=== PATIENT | male | born 1980 | race Caucasian/White ===

== ENCOUNTER 2017-01-19 22:08 | Emergency (ER) | payer BC ==
[~2017-01-19] VITALS: Ht 180.3 cm; Wt 74.8 kg
[~2017-01-19 22:08] MED LIST: ADVIL200 M1 PO; MULTIPLE VITAM1 EAC1 PO; SULFACETAMIDE S15 ML OS; TYLENOL WITH C1 EACH PO; VICODIN 5-3001 EACH PO
== END 2017-01-19 23:02 | disposition home or self-care (01) ==
LOC: ED 22:08
DX: S20.212A Contusion of left front wall of thorax, initial encounter (principal); F17.200 Nicotine dependence, unspecified, uncomplicated; W50.1XXA Accidental kick by another person, initial encounter; Y93.75 Activity, martial arts
CPT/HCPCS: 71101; 99283

== ENCOUNTER 2017-03-28 12:18 | Emergency (ER) | payer BC ==
[~2017-03-28] VITALS: Ht 180.3 cm; Wt 77.1 kg
[2017-03-28] MEDS ORDERED: IBUPROFEN600 MG PO (15:02)
== END 2017-03-28 15:26 | disposition home or self-care (01) ==
LOC: ED 12:18
DX: I80.02 Phlebitis and thrombophlebitis of superficial vessels of left lower extremity (principal); F17.200 Nicotine dependence, unspecified, uncomplicated
CPT/HCPCS: 93971; 99284

== ENCOUNTER 2017-05-15 17:03 | Emergency (ER) | payer BC ==
[~2017-05-15] VITALS: Ht 180.3 cm; Wt 77.1 kg
[~2017-05-15 17:03] MED LIST changes: +IBUPROFEN600 MG PO
[2017-05-15] MEDS ORDERED: POLYMYXIN B-TMP10 ML OPTH (17:11)
[2017-05-15] MEDS ORDERED: ERYTHROMYCIN1 GM OP (19:05)
== END 2017-05-15 17:17 | disposition home or self-care (01) ==
LOC: ED 17:03
DX: H57.12 Ocular pain, left eye (principal)

== ENCOUNTER 2017-05-15 17:21 | Emergency (ER) | payer OTHER ==
[~2017-05-15] VITALS: Ht 180.3 cm; Wt 77.1 kg
[~2017-05-15 17:21] MED LIST changes: +POLYMYXIN B-TMP10 ML OPTH
[2017-05-15] MEDS ORDERED: ERYTHROMYCIN1 GM OP (19:05)
== END 2017-05-15 19:30 | disposition home or self-care (01) ==
LOC: ED 17:21
DX: H10.9 Unspecified conjunctivitis (principal); F17.200 Nicotine dependence, unspecified, uncomplicated
CPT/HCPCS: 99282